=== PATIENT | female | born 1960 | race African-American/Black ===

== ENCOUNTER 2022-02-27 09:10 | Emergency (ER) | payer OTHER ==
[2022-02-27 09:22] VITALS: BP 151/84; PULSE 79; RESP 16; TEMP 97.8; BMI 40.3
[2022-02-27] MEDS ORDERED: ACETAMINOPHEN 325 MG TABLET (FP) ONE (10:24)
[2022-02-27] MEDS ORDERED: ACETAMINOPHEN 325 MG TABLET (FP) PO ONE (10:29)
== END 2022-02-27 11:26 | disposition home or self-care (01) ==
LOC: JERFT 09:10
DX: M25.561 Pain in right knee (principal); M25.562 Pain in left knee; W01.0XXA Fall on same level from slipping, tripping and stumbling without subsequent striking against object, initial encounter
CPT/HCPCS: 73562-TC-LT-FY; 73562-TC-RT-FY; 99284-25

== ENCOUNTER 2023-05-17 21:11 | Inpatient (IN) | payer OTHER ==
[2023-05-17 22:25] LABS: BASO % 0.3 % (0-2.0); EOS % 0.8 % (0-4.5); HEMOGLOBIN 12.4 GM/dL (10.7-15.3); LYMPH % 51.5 % (8-40); MCH 29.7 pg (25.7-33.7); MCHC 33.4 g/dl (32.0-36.0); MONO % 10.7 % (3.8-10.2); NEUT % 36.7 % (42.8-82.8); RBC 4.16 M/mm3 (3.60-5.2); RDW 14.5 % (11.6-15.6); WHITE BLOOD COUNT 3.8 K/mm3 (4.0-10.0)
[2023-05-17 22:52] LABS: INR 1.01 (0.83-1.09); PROTHROMBIN TIME (PATIENT) 11.7 SEC (9.7-13.0)
[2023-05-17 22:54] LABS: ACTIVATED PTT 31.6 SECONDS (25.2-36.5)
[2023-05-17 23:04] LABS: PLATELET COUNT 13 10^3/uL (134-434)
[2023-05-17 23:19] LABS: POTASSIUM 3.8 mmol/L (3.5-5.1)
[2023-05-17 23:21] LABS: ALBUMIN 3.3 g/dl (3.4-5.0); BLOOD UREA NITROGEN 11.3 mg/dL (7-18); CALCIUM 8.8 mg/dL (8.5-10.1)
[2023-05-17 23:24] LABS: BILIRUBIN,DIRECT 0.1 mg/dL (0.0-0.2); CREATININE 0.6 mg/dL (0.55-1.3)
[2023-05-17 23:26] LABS: BILIRUBIN,TOTAL 0.4 mg/dL (0.2-1)
[2023-05-18 07:27] LABS: HEMATOCRIT 36.8 % (32.4-45.2); HEMOGLOBIN 12.2 GM/dL (10.7-15.3); MCH 29.8 pg (25.7-33.7); MCHC 33.1 g/dl (32.0-36.0); MEAN CELL VOLUME 90.2 fl (80-96); MEAN PLT VOLUME 9.3 fl (7.5-11.1); RBC 4.08 M/mm3 (3.60-5.2); RDW 13.3 % (11.6-15.6); WHITE BLOOD COUNT 4.2 K/mm3 (4.0-10.0)
[2023-05-18 07:31] LABS: PLATELET COUNT 6 10^3/uL (134-434)
[2023-05-18 07:48] LABS: CHLORIDE 107 mmol/L (98-107); POTASSIUM 3.8 mmol/L (3.5-5.1); SODIUM 143 mmol/L (136-145)
[2023-05-18 07:49] LABS: ANION GAP 4 mmol/L (4-13); BLOOD UREA NITROGEN 8.7 mg/dL (7-18); CALCIUM 9.1 mg/dL (8.5-10.1); CO2 31 mmol/L (21-32); GLUCOSE,RANDOM 99 mg/dL (74-106); MAGNESIUM 2.4 mg/dL (1.8-2.4)
[2023-05-18 07:51] LABS: ALBUMIN 3.2 g/dl (3.4-5.0)
[2023-05-18 07:53] LABS: CREATININE 0.5 mg/dL (0.55-1.3); PHOSPHOROUS 3.5 mg/dL (2.5-4.9); SGOT/AST 17 U/L (15-37); SGPT/ALT 19 U/L (13-61)
[2023-05-18 07:54] LABS: BILIRUBIN,TOTAL 0.5 mg/dL (0.2-1); TOT PROT 6.9 g/dl (6.4-8.2)
[2023-05-18 07:56] LABS: ALK PHOS 80 U/L (45-117)
[2023-05-18] MEDS: LOSARTAN 50MG/HCTZ 12.5MG 1 TAB PO SCH (09:31)
[2023-05-18 11:47] LABS: LDH 208 U/L (84-246)
[2023-05-18] MEDS ORDERED: DEXAMETHASONE 4 MG TABLET (FP) ONE (13:15)
[2023-05-18] MEDS: DEXAMETHASONE 4 MG TABLET (FP) PO SCH (13:15)
[2023-05-18 13:59] LABS: EPI CELLS 2 /uL (0-25.1); HYALINE CASTS 0 /uL (0-3.1); PH,URINE 8.5 (5.0-8.0); URINE APPEARANCE CLEAR; URINE BACTERIA 6 /uL (0-1359); URINE BILIRUBIN NEGATIVE (NEGATIVE); URINE COLOR YELLOW; URINE GLUCOSE (UA) NEGATIVE (NEGATIVE); URINE KETONE NEGATIVE (NEGATIVE); URINE LEUK ESTERASE TRACE (NEGATIVE); URINE NITRITE NEGATIVE (NEGATIVE); URINE PROTEIN NEGATIVE (NEGATIVE); URINE RBC 6 /uL (0-23.9); URINE UROBILINOGEN 0.2 mg/dL (0.2-1.0); URINE WBC 10 /uL (0-25.8)
[2023-05-18 14:07] LABS: COCAINE, UR NEGATIVE (NEGATIVE); METHADONE, UR NEGATIVE (NEGATIVE); OPIATES, URI NEGATIVE (NEGATIVE); PHENCYCLIDINE,URINE NEGATIVE (NEGATIVE)
[2023-05-18 14:10] LABS: URINE AMPHETAMINES NEGATIVE (NEGATIVE); URINE BARBITURATES NEGATIVE (NEGATIVE); URINE BENZODIAZEPINES NEGATIVE (NEGATIVE)
[2023-05-18 15:32] LABS: HEMOGLOBIN 12.2 GM/dL (10.7-15.3); MCH 29.5 pg (25.7-33.7); MEAN CELL VOLUME 89.4 fl (80-96); MEAN PLT VOLUME 8.9 fl (7.5-11.1); PLATELET COUNT 44 10^3/uL (134-434); RBC 4.14 M/mm3 (3.60-5.2); WHITE BLOOD COUNT 4.1 K/mm3 (4.0-10.0)
[2023-05-18 16:12] LABS: ERYTHROCYTE SEDIMENTATION RATE 34 mm/hr (0-30)
[2023-05-18 17:01] LABS: HIV INTERPRETATION NEGATIVE (NEGATIVE)
[2023-05-18 17:09] LABS: HIV INTERPRETATION NEGATIVE (NEGATIVE)
[2023-05-18 18:46] VITALS: BMI 37.0
[2023-05-19 08:55] LABS: HEMATOCRIT 36.4 % (32.4-45.2); MCH 29.4 pg (25.7-33.7); MCHC 32.9 g/dl (32.0-36.0); MEAN CELL VOLUME 89.6 fl (80-96); MEAN PLT VOLUME 10.3 fl (7.5-11.1); PLATELET COUNT 38 10^3/uL (134-434); RBC 4.06 M/mm3 (3.60-5.2); RDW 13.5 % (11.6-15.6); WHITE BLOOD COUNT 5.5 K/mm3 (4.0-10.0)
[2023-05-19 09:08] LABS: POTASSIUM 3.8 mmol/L (3.5-5.1)
[2023-05-19 09:15] LABS: ALBUMIN 3.2 g/dl (3.4-5.0); CALCIUM 9.3 mg/dL (8.5-10.1)
[2023-05-19 09:16] LABS: BLOOD UREA NITROGEN 17.6 mg/dL (7-18); MAGNESIUM 2.4 mg/dL (1.8-2.4)
[2023-05-19 09:18] LABS: CREATININE 0.6 mg/dL (0.55-1.3)
[2023-05-19 09:19] LABS: PHOSPHOROUS 3.6 mg/dL (2.5-4.9)
[2023-05-19 09:20] LABS: BILIRUBIN,TOTAL 0.4 mg/dL (0.2-1)
[2023-05-20 10:06] LABS: HEMATOCRIT 36.4 % (32.4-45.2); HEMOGLOBIN 12.3 GM/dL (10.7-15.3); MCH 29.9 pg (25.7-33.7); MCHC 33.7 g/dl (32.0-36.0); MEAN CELL VOLUME 88.6 fl (80-96); MEAN PLT VOLUME 11.1 fl (7.5-11.1); MONO % 6.8 % (3.8-10.2); NEUT % 80.2 % (42.8-82.8); RBC 4.11 M/mm3 (3.60-5.2); RDW 13.6 % (11.6-15.6); WHITE BLOOD COUNT 8.5 K/mm3 (4.0-10.0)
[2023-05-20 10:15] LABS: PLATELET COUNT 28 10^3/uL (134-434); POTASSIUM 3.4 mmol/L (3.5-5.1)
[2023-05-20 10:20] LABS: BLOOD UREA NITROGEN 22.2 mg/dL (7-18); CALCIUM 9.1 mg/dL (8.5-10.1)
[2023-05-20 10:23] LABS: CREATININE 0.7 mg/dL (0.55-1.3)
[2023-05-20] MEDS: POTASSIUM CHLORIDE ORAL LIQUID 20 MEQ/15 ML PO ONE (12:07)
[2023-05-20 12:12] LABS: MAGNESIUM 2.4 mg/dL (1.8-2.4)
[2023-05-21 08:34] LABS: BLOOD UREA NITROGEN 20.3 mg/dL (7-18); MAGNESIUM 2.7 mg/dL (1.8-2.4)
[2023-05-21 08:35] LABS: HEMATOCRIT 37.7 % (32.4-45.2); HEMOGLOBIN 12.4 GM/dL (10.7-15.3); LYMPH % 17.8 % (8-40); MCH 29.6 pg (25.7-33.7); MCHC 32.9 g/dl (32.0-36.0); MEAN PLT VOLUME 11.5 fl (7.5-11.1); MONO % 7.2 % (3.8-10.2); RBC 4.19 M/mm3 (3.60-5.2); RDW 13.5 % (11.6-15.6)
[2023-05-21 08:37] LABS: CREATININE 0.8 mg/dL (0.55-1.3)
[2023-05-21 08:59] LABS: PLATELET COUNT 24 10^3/uL (134-434)
[2023-05-21 17:06] LABS: IG A QN SERUM. 338 mg/dL (87-352)
[2023-05-22 08:33] LABS: HEMATOCRIT 38.4 % (32.4-45.2); HEMOGLOBIN 12.6 GM/dL (10.7-15.3); MCH 29.3 pg (25.7-33.7); MCHC 32.7 g/dl (32.0-36.0); MEAN CELL VOLUME 89.7 fl (80-96); MEAN PLT VOLUME 11.7 fl (7.5-11.1); RBC 4.28 M/mm3 (3.60-5.2); RDW 13.6 % (11.6-15.6); WHITE BLOOD COUNT 7.9 K/mm3 (4.0-10.0)
[2023-05-22 08:41] LABS: POTASSIUM 4.2 mmol/L (3.5-5.1)
[2023-05-22 08:48] LABS: ALBUMIN 3.3 g/dl (3.4-5.0); BLOOD UREA NITROGEN 17.7 mg/dL (7-18); CALCIUM 8.8 mg/dL (8.5-10.1)
[2023-05-22 08:50] LABS: PLATELET COUNT 27 10^3/uL (134-434)
[2023-05-22 08:51] LABS: CREATININE 0.7 mg/dL (0.55-1.3)
[2023-05-22 08:53] LABS: BILIRUBIN,TOTAL 0.5 mg/dL (0.2-1)
[2023-05-22] MEDS ORDERED: MIDAZOLAM HCL 2 MG/2 ML SINGLE DOSE VIAL ONE (09:41)
[2023-05-22] MEDS: SODIUM CHLORIDE 500 ML IV SCH (10:50)
[2023-05-22] MEDS: FENTANYL CITRATE/PF 50 MCG/ML VIAL IVPUSH ONE ×2 (10:55→11:10)
[2023-05-22 11:48] VITALS: RESP 13
[2023-05-22 15:16] VITALS: BP 116/59; PULSE 69; TEMP 97.5
[2023-05-22 17:09] LABS: FREE KAPPA,SERUM 23.3 mg/L (3.3-19.4)
== END 2023-05-22 16:58 | disposition home or self-care (01) | DRG 813 ==
LOC: JER 21:11 → JERBED 23:56 → OBSVTOIN 05-18 03:57 → J6S 05-18 17:42
PROVIDERS: ADMIT Internal Medicine; ATTEND Internal Medicine
PROC: 30233R1 Transfusion of Nonautologous Platelets into Peripheral Vein, Percutaneous Approach (ICD-10-PCS; principal; 2023-05-18)
DX: D69.6 Thrombocytopenia, unspecified (principal); D64.9 Anemia, unspecified; M25.569 Pain in unspecified knee; I10 Essential (primary) hypertension; D72.819 Decreased white blood cell count, unspecified
CPT/HCPCS: 0241U-QW; 20225; 36415; 36430; 77012-TC; 80048; 80053; 80307; 81003; 82248; 82525; 82607; 82746; 82784; 83010; 83615; 83735; 83883; 84100; 84155; 84165; 84436; 84439; 84443; 84630; 85025; 85027; 85045; 85384; 85610; 85651; 85730; 86038; 86140; 86704; 86803; 86850; 86900; 86901; 87086; 87340; 87389; 87517; 87799; 88300-TC; 93005; 93010; 99285-25; G0378; P9037

== ENCOUNTER 2023-06-09 10:31 | Inpatient (IN) | payer OTHER ==
[2023-06-09 12:43] LABS: BASO % 0.6 % (0-2.0); EOS % 0.4 % (0-4.5); HEMATOCRIT 36.7 % (32.4-45.2); LYMPH % 29.3 % (8-40); MCH 29.6 pg (25.7-33.7); MCHC 32.8 g/dl (32.0-36.0); MEAN CELL VOLUME 90.3 fl (80-96); MONO % 8.2 % (3.8-10.2); NEUT % 61.5 % (42.8-82.8); RBC 4.06 M/mm3 (3.60-5.2); RDW 13.9 % (11.6-15.6); WHITE BLOOD COUNT 3.9 K/mm3 (4.0-10.0)
[2023-06-09 12:50] LABS: INR 1.08 (0.83-1.09); PROTHROMBIN TIME (PATIENT) 12.5 SEC (9.7-13.0)
[2023-06-09 12:52] LABS: PLATELET COUNT 8 10^3/uL (134-434)
[2023-06-09 12:53] LABS: ACTIVATED PTT 31.5 SECONDS (25.2-36.5)
[2023-06-09 13:02] LABS: POTASSIUM 4.9 mmol/L (3.5-5.1)
[2023-06-09 13:04] LABS: CALCIUM 9.1 mg/dL (8.5-10.1)
[2023-06-09 13:05] LABS: ALBUMIN 3.1 g/dl (3.4-5.0); BLOOD UREA NITROGEN 10.8 mg/dL (7-18)
[2023-06-09 13:08] LABS: CREATININE 0.6 mg/dL (0.55-1.3)
[2023-06-09 13:09] LABS: BILIRUBIN,TOTAL 0.6 mg/dL (0.2-1); TOT PROT 6.6 g/dl (6.4-8.2)
[2023-06-09] MEDS ORDERED: diphenhydrAMINE HCL 25 MG CAPSULE (FP) PO ONE (16:00)
[2023-06-09] MEDS: diphenhydrAMINE HCL 25 MG CAPSULE (FP) PO ONE (16:00)
[2023-06-09] MEDS: predniSONE 20 MG TABLET (UD) PO SCH (21:49)
[2023-06-09] MEDS: PRO IMMUN GLOB IVPB SCH (22:40)
[2023-06-09] MEDS: PRO IVPB SCH (22:40)
[2023-06-09] MEDS: IMMUN GLOB IVPB SCH (22:40)
[2023-06-09] MEDS: IGA IVPB SCH (22:40)
[2023-06-10 07:09] LABS: BASO % 0.1 % (0-2.0); HEMATOCRIT 32.2 % (32.4-45.2); HEMOGLOBIN 10.6 GM/dL (10.7-15.3); LYMPH % 13.7 % (8-40); MCH 29.5 pg (25.7-33.7); MCHC 32.9 g/dl (32.0-36.0); MEAN CELL VOLUME 89.7 fl (80-96); MONO % 4.1 % (3.8-10.2); NEUT % 82.1 % (42.8-82.8); RBC 3.59 M/mm3 (3.60-5.2); RDW 13.6 % (11.6-15.6); WHITE BLOOD COUNT 2.2 K/mm3 (4.0-10.0)
[2023-06-10 07:13] LABS: PLATELET COUNT 19 10^3/uL (134-434)
[2023-06-10 07:31] LABS: POTASSIUM 4.1 mmol/L (3.5-5.1)
[2023-06-10 07:33] LABS: BLOOD UREA NITROGEN 12.8 mg/dL (7-18); CALCIUM 8.7 mg/dL (8.5-10.1)
[2023-06-10 07:34] LABS: ALBUMIN 2.5 g/dl (3.4-5.0)
[2023-06-10 07:37] LABS: CREATININE 0.6 mg/dL (0.55-1.3)
[2023-06-10 07:38] LABS: BILIRUBIN,TOTAL 0.4 mg/dL (0.2-1)
[2023-06-10 07:42] LABS: TOT PROT 7.8 g/dl (6.4-8.2)
[2023-06-10] MEDS: LOSARTAN 50MG/HCTZ 12.5MG 1 TAB PO SCH (09:49)
[2023-06-10] MEDS ORDERED: predniSONE 20 MG TABLET (UD) PO SCH (14:17)
[2023-06-11 07:17] LABS: POTASSIUM 3.5 mmol/L (3.5-5.1)
[2023-06-11 07:22] LABS: CALCIUM 8.3 mg/dL (8.5-10.1)
[2023-06-11 07:23] LABS: ALBUMIN 2.2 g/dl (3.4-5.0); BLOOD UREA NITROGEN 12.5 mg/dL (7-18)
[2023-06-11 07:26] LABS: CREATININE 0.6 mg/dL (0.55-1.3)
[2023-06-11 07:27] LABS: BILIRUBIN,TOTAL 0.3 mg/dL (0.2-1); TOT PROT 8.7 g/dl (6.4-8.2)
[2023-06-11 07:57] LABS: HEMATOCRIT 29.3 % (32.4-45.2); HEMOGLOBIN 9.7 GM/dL (10.7-15.3); MCH 29.8 pg (25.7-33.7); MCHC 33.2 g/dl (32.0-36.0); MEAN CELL VOLUME 89.5 fl (80-96); MEAN PLT VOLUME 10.4 fl (7.5-11.1); PLATELET COUNT 38 10^3/uL (134-434); RBC 3.27 M/mm3 (3.60-5.2); RDW 13.5 % (11.6-15.6)
[2023-06-11 09:44] LABS: ANISOCYTOSIS 0; HELMET CELLS 0; HOWELL-JOLLY BODIES 0; MACROCYTOSIS 0; OVALOCYTE 0; ROULEAU 0; SICKELED CELLS 0; TARGET CELLS 0; TEAR DROP CELLS 0; TOXIC GRANULATION 0
[2023-06-11] MEDS: LOSARTAN 50MG/HCTZ 12.5MG 1 TAB PO SCH (09:57)
[2023-06-11] MEDS: ACETAMINOPHEN 325 MG TABLET (FP) PO ONE (09:57)
[2023-06-11] MEDS: predniSONE 20 MG TABLET (UD) PO SCH (09:58)
[2023-06-11] MEDS: PANTOPRAZOLE 40 MG TABLET PO SCH (09:59)
[2023-06-11] MEDS ORDERED: ACETAMINOPHEN 325 MG TABLET (FP) PO PRN (13:12)
[2023-06-11 14:13] VITALS: BMI 40.6
[2023-06-11] MEDS ORDERED: PRO IMMUN GLOB IVPB SCH (22:00)
[2023-06-11] MEDS ORDERED: PRO IVPB SCH (22:00)
[2023-06-11] MEDS ORDERED: IMMUN GLOB IVPB SCH (22:00)
[2023-06-11] MEDS ORDERED: IGA IVPB SCH (22:00)
[2023-06-11] MEDS: ONDANSETRON 4 MG/2 ML VIAL IVPUSH PRN (22:43)
[2023-06-12] MEDS: ACETAMINOPHEN 325 MG TABLET (FP) PO PRN (02:56)
[2023-06-12 06:47] LABS: POTASSIUM 3.5 mmol/L (3.5-5.1)
[2023-06-12 06:50] LABS: CALCIUM 8.5 mg/dL (8.5-10.1)
[2023-06-12 06:51] LABS: ALBUMIN 2.4 g/dl (3.4-5.0); BLOOD UREA NITROGEN 16.9 mg/dL (7-18); MAGNESIUM 2.1 mg/dL (1.8-2.4)
[2023-06-12 06:54] LABS: CREATININE 0.7 mg/dL (0.55-1.3); PHOSPHOROUS 3.2 mg/dL (2.5-4.9)
[2023-06-12 06:55] LABS: BILIRUBIN,TOTAL 0.5 mg/dL (0.2-1)
[2023-06-12 06:59] LABS: BASO % 0.2 % (0-2.0); EOS % 0.1 % (0-4.5); HEMATOCRIT 29.7 % (32.4-45.2); HEMOGLOBIN 10.2 GM/dL (10.7-15.3); LYMPH % 19.7 % (8-40); MCH 30.1 pg (25.7-33.7); MCHC 34.4 g/dl (32.0-36.0); MEAN CELL VOLUME 87.6 fl (80-96); MEAN PLT VOLUME 9.6 fl (7.5-11.1); MONO % 11.8 % (3.8-10.2); NEUT % 68.2 % (42.8-82.8); PLATELET COUNT 51 10^3/uL (134-434); RBC 3.39 M/mm3 (3.60-5.2); RDW 13.4 % (11.6-15.6); TOT PROT 8.4 g/dl (6.4-8.2); WHITE BLOOD COUNT 5.2 K/mm3 (4.0-10.0)
[2023-06-12 11:27] VITALS: BP 127/75; PULSE 61; RESP 15; TEMP 98.1
== END 2023-06-12 13:29 | disposition home or self-care (01) | DRG 813 ==
LOC: JER 10:31 → JERBED 13:22 → J6S 17:02 → JICU 06-10 00:24 → J2W 06-10 06:55
PROVIDERS: ADMIT Internal Medicine; ATTEND Internal Medicine
PROC: 30233R1 Transfusion of Nonautologous Platelets into Peripheral Vein, Percutaneous Approach (ICD-10-PCS; principal; 2023-06-09)
DX: D69.3 Immune thrombocytopenic purpura (principal); I10 Essential (primary) hypertension; D64.9 Anemia, unspecified; D72.819 Decreased white blood cell count, unspecified
CPT/HCPCS: 36415; 36430; 80053; 82728; 83540; 83550; 83735; 84100; 84443; 85025; 85045; 85610; 85730; 86078; 86225; 86850; 86900; 86901; 87040; 93005; 93010; 99285-25; J1459; P9037

== ENCOUNTER 2023-09-28 20:42 | Emergency (ER) | payer OTHER ==
[2023-09-28 20:52] VITALS: BMI 38.2
[2023-09-28 21:35] LABS: BASO % 0.3 % (0-2.0); EOS % 0.8 % (0-4.5); HEMATOCRIT 33.1 % (32.4-45.2); HEMOGLOBIN 11.1 GM/dL (10.7-15.3); LYMPH % 41.6 % (8-40); MCH 29.6 pg (25.7-33.7); MCHC 33.6 g/dl (32.0-36.0); MEAN CELL VOLUME 87.9 fl (80-96); MEAN PLT VOLUME 10.8 fl (7.5-11.1); MONO % 10.9 % (3.8-10.2); NEUT % 46.4 % (42.8-82.8); RBC 3.77 M/mm3 (3.60-5.2); RDW 13.7 % (11.6-15.6); WHITE BLOOD COUNT 4.9 K/mm3 (4.0-10.0)
[2023-09-28 21:48] LABS: INR 0.97 (0.83-1.09); PROTHROMBIN TIME (PATIENT) 11.2 SEC (9.7-13.0)
[2023-09-28 21:49] LABS: POTASSIUM 3.3 mmol/L (3.5-5.1)
[2023-09-28 21:50] LABS: ACTIVATED PTT 29.9 SECONDS (25.2-36.5)
[2023-09-28 21:51] LABS: CALCIUM 8.6 mg/dL (8.5-10.1)
[2023-09-28 21:52] LABS: ALBUMIN 3.8 g/dl (3.4-5.0); BLOOD UREA NITROGEN 14.8 mg/dL (7-18)
[2023-09-28 21:55] LABS: CREATININE 0.6 mg/dL (0.55-1.3)
[2023-09-28 21:56] LABS: TOT PROT 7.2 g/dl (6.4-8.2)
[2023-09-28 21:57] LABS: BILIRUBIN,TOTAL 0.6 mg/dL (0.2-1)
[2023-09-28 22:30] LABS: PLATELET COUNT 6 10^3/uL (134-434)
[2023-09-28] MEDS ORDERED: POTASSIUM CHLORIDE ORAL LIQUID 20 MEQ/15 ML ONE (23:58)
[2023-09-29] MEDS: POTASSIUM CHLORIDE ORAL LIQUID 20 MEQ/15 ML PO ONE (00:05)
[2023-09-29] MEDS ORDERED: DEXAMETHASONE SOD PHOSPHATE 10 MG/1 ML VIAL ONE ×2 (00:40→00:41)
[2023-09-29] MEDS: DEXAMETHASONE SOD PHOSPHATE 20 MG/5 ML VIAL IVPB ONE (00:53)
[2023-09-29] MEDS: IMMUNE GLOBULIN (IgG) 10 GM VIAL IVPB ONE (00:57)
[2023-09-29] MEDS ORDERED: PRO IVPB SCH (02:00)
[2023-09-29] MEDS ORDERED: IGA IVPB SCH (02:00)
[2023-09-29] MEDS ORDERED: IMMUN GLOB IVPB SCH (02:00)
[2023-09-29] MEDS ORDERED: [UNRECOGNIZED DRUG - OTHER] IVPB SCH (02:00)
[2023-09-29 05:13] VITALS: BP 105/78; PULSE 80; RESP 16; TEMP 98.1
== END 2023-09-29 05:30 | disposition short-term general hospital (02) ==
LOC: JER 20:42
PROC: 3E033GC Introduction of Other Therapeutic Substance into Peripheral Vein, Percutaneous Approach (ICD-10-PCS; principal; 2023-09-29)
DX: S40.021A Contusion of right upper arm, initial encounter (principal); S40.022A Contusion of left upper arm, initial encounter; S80.11XA Contusion of right lower leg, initial encounter; S80.12XA Contusion of left lower leg, initial encounter; D69.6 Thrombocytopenia, unspecified; R51.9 Headache, unspecified; K13.0 Diseases of lips; X58.XXXA Exposure to other specified factors, initial encounter
CPT/HCPCS: 36415; 36430; 70450-TC; 80053; 85025; 85610; 85730; 86850; 86900; 86901; 93005; 93010; 99291; P9037

== ENCOUNTER 2023-10-30 12:31 | Day surgery (SDC) | payer OTHER ==
[2023-10-30 12:57] LABS: BASO % 0.2 % (0-2.0); EOS % 0.9 % (0-4.5); HEMATOCRIT 32.3 % (32.4-45.2); MCH 30.1 pg (25.7-33.7); MCHC 34.1 g/dl (32.0-36.0); MEAN CELL VOLUME 88.2 fl (80-96); MONO % 11.1 % (3.8-10.2); NEUT % 50.8 % (42.8-82.8); RBC 3.66 M/mm3 (3.60-5.2); WHITE BLOOD COUNT 3.2 K/mm3 (4.0-10.0)
[2023-10-30] MEDS: SODIUM CHLORIDE 250 ML IV ONE (12:57)
[2023-10-30 13:04] LABS: PLATELET COUNT 12 10^3/uL (134-434)
[2023-10-30 13:23] LABS: CHLORIDE 109 mmol/L (98-107); POTASSIUM 3.6 mmol/L (3.5-5.1); SODIUM 140 mmol/L (136-145)
[2023-10-30 13:25] LABS: CALCIUM 8.5 mg/dL (8.5-10.1)
[2023-10-30 13:26] LABS: ALBUMIN 2.9 g/dl (3.4-5.0); ANION GAP 7 mmol/L (4-13); CO2 25 mmol/L (21-32); GLUCOSE,RANDOM 118 mg/dL (74-106)
[2023-10-30 13:28] LABS: BILIRUBIN,DIRECT 0.1 mg/dL (0.0-0.2)
[2023-10-30 13:29] LABS: CREATININE 0.7 mg/dL (0.55-1.3); SGOT/AST 37 U/L (15-37); SGPT/ALT 40 U/L (13-61)
[2023-10-30 13:30] LABS: BILIRUBIN,TOTAL 0.4 mg/dL (0.2-1); LDH 251 U/L (84-246); TOT PROT 7.4 g/dl (6.4-8.2)
[2023-10-30 13:32] LABS: ALK PHOS 66 U/L (45-117)
[2023-10-30] MEDS: ACETAMINOPHEN 325 MG TABLET (FP) PO ONE (14:20)
[2023-10-30] MEDS: DIPHENHYDRAMINE 50 MG in SODIUM CHLORIDE 50 ML IVPB ONE (14:41)
[2023-10-30] MEDS: SODIUM CHLORIDE IVPB ONE (15:00)
[2023-10-30] MEDS: RITUXIMAB PVVR IVPB ONE (15:00)
[2023-10-30 18:17] VITALS: RESP 18
[2023-10-30 18:46] VITALS: BP 120/55; PULSE 66; TEMP 98.5
== END 2023-10-30 18:48 | disposition home or self-care (01) ==
LOC: JONCNONCHE 12:31 → J7W 12:32 → JONCNONCHE 18:48
PROVIDERS: ATTEND Internal Medicine Hematology & Oncology
DX: D69.3 Immune thrombocytopenic purpura (principal)
CPT/HCPCS: 36415; 80048; 80076; 83615; 85025; 96375; 96413; 96415; Q5119

== ENCOUNTER 2023-11-06 11:10 | Day surgery (SDC) | payer OTHER ==
[2023-11-06 11:51] LABS: BASO % 0.3 % (0-2.0); EOS % 0.6 % (0-4.5); HEMATOCRIT 33.9 % (32.4-45.2); HEMOGLOBIN 11.3 GM/dL (10.7-15.3); LYMPH % 33.1 % (8-40); MCH 29.4 pg (25.7-33.7); MCHC 33.3 g/dl (32.0-36.0); MEAN CELL VOLUME 88.4 fl (80-96); MEAN PLT VOLUME 11.9 fl (7.5-11.1); MONO % 11.1 % (3.8-10.2); NEUT % 54.9 % (42.8-82.8); PLATELET COUNT 62 10^3/uL (134-434); RBC 3.84 M/mm3 (3.60-5.2); RDW 15.8 % (11.6-15.6); WHITE BLOOD COUNT 3.5 K/mm3 (4.0-10.0)
[2023-11-06 12:22] LABS: CHLORIDE 111 mmol/L (98-107); POTASSIUM 4.1 mmol/L (3.5-5.1); SODIUM 143 mmol/L (136-145)
[2023-11-06 12:23] LABS: CALCIUM 8.7 mg/dL (8.5-10.1)
[2023-11-06 12:24] LABS: ANION GAP 7 mmol/L (4-13); BLOOD UREA NITROGEN 11.2 mg/dL (7-18); CO2 26 mmol/L (21-32); GLUCOSE,RANDOM 109 mg/dL (74-106)
[2023-11-06 12:27] LABS: BILIRUBIN,DIRECT 0.2 mg/dL (0.0-0.2); CREATININE 0.7 mg/dL (0.55-1.3); SGOT/AST 34 U/L (15-37); SGPT/ALT 32 U/L (13-61)
[2023-11-06 12:29] LABS: BILIRUBIN,TOTAL 0.6 mg/dL (0.2-1); LDH 253 U/L (84-246)
[2023-11-06 12:30] LABS: ALK PHOS 71 U/L (45-117)
[2023-11-06] MEDS: SODIUM CHLORIDE 250 ML IV ONE (12:30)
[2023-11-06] MEDS: DIPHENHYDRAMINE 50 MG in SODIUM CHLORIDE 50 ML IVPB ONE (12:44)
[2023-11-06] MEDS: ACETAMINOPHEN 325 MG TABLET (FP) PO ONE (12:44)
[2023-11-06] MEDS: RITUXIMAB PVVR IVPB ONE (13:15)
[2023-11-06] MEDS: SODIUM CHLORIDE IVPB ONE (13:15)
[2023-11-06 16:54] VITALS: RESP 16
[2023-11-06 17:31] VITALS: BP 149/77; PULSE 77; TEMP 97.9
== END 2023-11-06 17:30 | disposition home or self-care (01) ==
LOC: J7W 11:10 → JONCNONCHE 11:10
PROVIDERS: ATTEND Internal Medicine Hematology & Oncology
PROC: 3E03305 Introduction of Other Antineoplastic into Peripheral Vein, Percutaneous Approach (ICD-10-PCS; principal; 2023-11-06)
PROC: 3E0337Z Introduction of Electrolytic and Water Balance Substance into Peripheral Vein, Percutaneous Approach (ICD-10-PCS; 2023-11-06)
PROC: 3E033GC Introduction of Other Therapeutic Substance into Peripheral Vein, Percutaneous Approach (ICD-10-PCS; 2023-11-06)
DX: D69.3 Immune thrombocytopenic purpura (principal)
CPT/HCPCS: 36415; 80048; 80076; 83615; 85025; 96375; 96413; 96415; Q5119

== ENCOUNTER 2024-12-25 16:43 | Inpatient (IN) | payer OTHER ==
[2024-12-25 16:48] VITALS: BMI 31.6
[2024-12-25 19:01] LABS: EOSINOPHIL % 1.1 % (0.7-5.8); EOSINOPHILS # 0.05 x10^3/uL (0.04-0.36); MONOCYTE # 0.43 x10^3/uL (0.24-0.86); RDW 12.9 % (12.4-16.4)
[2024-12-25 19:03] LABS: ABSOLUTE IMMATURE GRANULOCYTES 0.00 x10^3/uL (0.0-0.031); BASOPHILS # 0.01 x10^3/uL (0.01-0.08); IMMATURE PLATELET FRACTION # 0.20 x10^3/uL; MCHC 31.9 g/dl (32.2-35.5); MEAN CELL VOLUME 92.1 fl (79.4-94.8); MONOCYTE % 9.3 % (4.7-12.5)
[2024-12-25 19:12] LABS: INR 1.03 (0.83-1.09); PROTHROMBIN TIME (PATIENT) 11.2 SEC (9.7-13.0)
[2024-12-25 19:15] LABS: ACTIVATED PTT 31.9 SECONDS (25.2-36.5)
[2024-12-25] MEDS ORDERED: DEXAMETHASONE SOD PHOSPHATE 10 MG/1 ML VIAL ONE ×2 (19:20→19:35)
[2024-12-25 19:24] LABS: GLUCOSE,RANDOM 92.0 mg/dL (74-106)
[2024-12-25 19:25] LABS: TOT PROT 7.0 g/dl (6.4-8.2)
[2024-12-25 19:26] LABS: CO2 27.0 mmol/L (21-32)
[2024-12-25 19:27] LABS: ALK PHOS 83.0 U/L (40-150)
[2024-12-25 19:30] LABS: SGOT/AST 31.0 U/L (5-34); SGPT/ALT 19.0 U/L (0-55)
[2024-12-25 19:31] LABS: CREATININE 0.63 mg/dL (0.55-1.3)
[2024-12-25] MEDS ORDERED: ACETAMINOPHEN 325 MG TABLET (FP) ONE (19:35)
[2024-12-25] MEDS: DEXAMETHASONE SOD PHOSPHATE 20 MG/5 ML VIAL IVPB ONE (19:46)
[2024-12-25] MEDS: ACETAMINOPHEN 325 MG TABLET (FP) PO ONE (19:46)
[2024-12-25] MEDS: PRO IMMUN GLOB IVPB SCH (22:03)
[2024-12-25] MEDS: IMMUN GLOB IVPB SCH (22:03)
[2024-12-25] MEDS: PRO IVPB SCH (22:03)
[2024-12-25] MEDS: IGA IVPB SCH (22:03)
[2024-12-25] MEDS: [UNRECOGNIZED DRUG - OTHER] IVPB SCH (22:03)
[2024-12-26] MEDS: IMMUNE GLOBULIN (IgG) 10 GM VIAL IVPB SCH (02:52)
[2024-12-26] MEDS: IMMUN GLOB IVPB SCH (02:53)
[2024-12-26] MEDS: PRO IVPB SCH (02:53)
[2024-12-26] MEDS: PRO IMMUN GLOB IVPB SCH (02:53)
[2024-12-26] MEDS: [UNRECOGNIZED DRUG - OTHER] IVPB SCH (02:53)
[2024-12-26] MEDS: IGA IVPB SCH (02:53)
[2024-12-26] MEDS: LOSARTAN 50MG/HCTZ 12.5MG 1 TAB PO SCH (09:08)
[2024-12-26] MEDS: DEXAMETHASONE INJECTION 40 MG in SODIUM CHLORIDE 50 ML IVPB SCH (09:37)
[2024-12-26 09:38] LABS: EOSINOPHIL % 0.0 % (0.7-5.8); EOSINOPHILS # 0.00 x10^3/uL (0.04-0.36)
[2024-12-26 09:40] LABS: ABSOLUTE IMMATURE GRANULOCYTES 0.01 x10^3/uL (0.0-0.031); BASOPHILS # 0.01 x10^3/uL (0.01-0.08); MCHC 32.6 g/dl (32.2-35.5); MEAN CELL VOLUME 91.4 fl (79.4-94.8); MONOCYTE # 0.11 x10^3/uL (0.24-0.86); MONOCYTE % 2.5 % (4.7-12.5); RDW 12.7 % (12.4-16.4)
[2024-12-26 10:29] LABS: GLUCOSE,RANDOM 140.0 mg/dL (74-106)
[2024-12-26 10:31] LABS: CO2 25.0 mmol/L (21-32)
[2024-12-26 10:35] LABS: CREATININE 0.51 mg/dL (0.55-1.3)
[2024-12-26] MEDS ORDERED: DEXAMETHASONE SOD PHOSPHATE 20 MG/5 ML VIAL IVPB SCH (12:00)
[2024-12-27 08:48] LABS: MCHC 32.6 g/dl (32.2-35.5)
[2024-12-27 08:50] LABS: IMMATURE PLATELET FRACTION # 10.60 x10^3/uL; MEAN CELL VOLUME 91.6 fl (79.4-94.8); RDW 13.1 % (12.4-16.4)
[2024-12-27 10:17] LABS: GLUCOSE,RANDOM 119.0 mg/dL (74-106)
[2024-12-27 10:18] LABS: CO2 25.0 mmol/L (21-32)
[2024-12-27 10:22] LABS: CREATININE 0.59 mg/dL (0.55-1.3)
[2024-12-27] MEDS: POTASSIUM CHLORIDE TABS 20 MEQ TABLET.ER (FP) PO ONE (10:45)
[2024-12-28 06:41] VITALS: PULSE 66; RESP 18
[2024-12-28 08:58] VITALS: BP 132/74; TEMP 98.1
[2024-12-28 10:32] LABS: ABSOLUTE IMMATURE GRANULOCYTES 0.01 x10^3/uL (0.0-0.031); BASOPHILS # 0.02 x10^3/uL (0.01-0.08); EOSINOPHIL % 0.0 % (0.7-5.8); EOSINOPHILS # 0.00 x10^3/uL (0.04-0.36); MEAN PLT VOLUME 11.4 fl (9.4-12.3); RDW 13.2 % (12.4-16.4)
[2024-12-28 10:33] LABS: IMMATURE PLATELET FRACTION # 6.70 x10^3/uL; MCHC 32.2 g/dl (32.2-35.5); MEAN CELL VOLUME 92.4 fl (79.4-94.8); MONOCYTE # 0.64 x10^3/uL (0.24-0.86); MONOCYTE % 10.4 % (4.7-12.5)
[2024-12-28] MEDS: PANTOPRAZOLE 40 MG TABLET PO SCH (13:23)
== END 2024-12-28 15:02 | disposition home or self-care (01) | DRG 813 ==
LOC: JER 16:43 → JERBED 17:49 → J5S 20:26
PROVIDERS: ADMIT Student in an Organized Health Care Education/Training Program
DX: D69.3 Immune thrombocytopenic purpura (principal); I10 Essential (primary) hypertension; E78.5 Hyperlipidemia, unspecified; K21.9 Gastro-esophageal reflux disease without esophagitis; M19.90 Unspecified osteoarthritis, unspecified site
CPT/HCPCS: 36415; 80048; 80053; 83735; 84100; 85025; 85027; 85610; 85730; 86850; 86900; 86901; 93005; 93010; 99285-25; J1100; J1459